=== PATIENT | female | born 1930 | race Caucasian/White ===

== ENCOUNTER 2017-06-24 07:21 | Inpatient (IN) | payer OTHER ==
[~2017-06-24] VITALS: Ht 144.8 cm; Wt 30.8 kg
[~2017-06-24 07:21] MED LIST: A/B OTIC15 ML; ASPIR 8181 MG PO; CAG500 PO; CLARITIN10 MG PO; DOC-Q-LACE PO; DYA PO; ECO325 PO; ELIQUIS5 MG PO; FER300 PO; FOL1 PO; FOS10 PO; HYDROXYCHLOROQ200 MG PO; HYDROXYZINE HYD25 MG PO; LEFLUNOMIDE PO; LIPI10 PO; PRI20 PO; SUDAFED CONGEST30 MG PO; SYN5 PO; VITD PO
[2017-06-24] MEDS ORDERED: GINKGO BILOBA60 M2 PO (08:03)
[2017-06-24] MEDS ORDERED: NATURAL IRON65 MG PO (08:03)
[2017-06-24] MEDS ORDERED: HYDROCORTISONE2.51 TP (08:04)
[2017-06-24] MEDS ORDERED: D-20001 TAB PO (08:04)
[2017-06-24] MEDS ORDERED: AMOXICILLI400 MG/5 M PO (08:05)
[2017-06-24] MEDS ORDERED: PATADAY2.5 ML OP (08:05)
[2017-06-24 08:28] LABS: BASOPHIL % 0.2 % (0-2); PLATELET COUNT 257 x10^3mcL (130-400)
[2017-06-24 08:51] LABS: ALKALINE PHOSPHATASE 137 U/L (46-116); ALT/SGPT 21 U/L (14-59); AST/SGOT 30 U/L (15-37); BILIRUBIN TOTAL 0.46 mg/dL (0.20-1.00); CALCIUM 8.7 mg/dL (8.5-10.1); CARBON DIOXIDE 15.5 mmol/L (21-32); CHLORIDE SERUM 111 mmol/L (98-107); GLUCOSE SERUM 67 mg/dL (74-106); SODIUM SERUM 148 mmol/L (136-145); TOTAL PROTEIN, SERUM 7.7 g/dL (6.4-8.2)
[2017-06-24 08:55] LABS: ALBUMIN 2.5 g/dL (3.4-5.0)
[2017-06-24 08:56] LABS: POTASSIUM SERUM 5.8 mmol/L (3.5-5.1)
[2017-06-24 09:13] LABS: RED CELL DISTRIBUTION WIDTH 17.1 % (11.5-14.5)
[2017-06-24 09:45] LABS: UA SPECIFIC GRAVITY 1.025 (1.005-1.035); microscopic required? YES; urine erythrocyte NEGATIVE (NEGATIVE)
[2017-06-24 10:35] LABS: T3 TOTAL 0.48 ng/mL
[2017-06-24 10:46] LABS: MAGNESIUM 2.7 mg/dL (1.8-2.4); PHOSPHOROUS 5.3 mg/dL (2.5-4.9)
[2017-06-24 10:47] VITALS: BP 147/78
[2017-06-24 10:54] LABS: FREE T4 0.9 ng/dL (0.76-1.46); FREE THYROXINE INDEX 1.7 ug/dL (1.4-4.5); T4(THYROXINE) 4.3 ug/dL (4.7-13.3)
[2017-06-24 11:48] VITALS: BP 147/78
[2017-06-24 14:40] VITALS: BP 108/58
[2017-06-24 17:11] VITALS: BP 118/62
[2017-06-24 18:41] LABS: CARBON DIOXIDE 18.7 mmol/L (21-32); CHLORIDE SERUM 115 mmol/L (98-107); CREATININE SERUM 2.5 mg/dL (0.6-1.0); GLUCOSE SERUM 85 mg/dL (74-106); MAGNESIUM 2.5 mg/dL (1.8-2.4); POTASSIUM SERUM 4.3 mmol/L (3.5-5.1); SODIUM SERUM 152 mmol/L (136-145)
[2017-06-24 20:57] VITALS: BP 112/49
[2017-06-25 06:15] LABS: BASOPHIL % 0.4 % (0-2); PLATELET COUNT 175 x10^3mcL (130-400)
[2017-06-25 06:18] LABS: CALCIUM 7.8 mg/dL (8.5-10.1); CARBON DIOXIDE 20.8 mmol/L (21-32); CHLORIDE SERUM 118 mmol/L (98-107); CREATININE SERUM 2.1 mg/dL (0.6-1.0); MAGNESIUM 2.3 mg/dL (1.8-2.4); PHOSPHOROUS 3.4 mg/dL (2.5-4.9); SODIUM SERUM 151 mmol/L (136-145)
[2017-06-25 06:25] LABS: GLUCOSE SERUM 59 mg/dL (74-106)
[2017-06-25 10:04] VITALS: BP 126/60
[2017-06-25 12:45] VITALS: BP 119/62
[2017-06-25 17:11] VITALS: BP 116/67
[2017-06-25 21:32] VITALS: BP 107/64
[2017-06-26 06:31] LABS: CALCIUM 7.2 mg/dL (8.5-10.1); CARBON DIOXIDE 22.6 mmol/L (21-32); CHLORIDE SERUM 106 mmol/L (98-107); CREATININE SERUM 1.4 mg/dL (0.6-1.0); GLUCOSE SERUM 217 mg/dL (74-106); MAGNESIUM 1.7 mg/dL (1.8-2.4); PHOSPHOROUS 1.6 mg/dL (2.5-4.9); POTASSIUM SERUM 3.3 mmol/L (3.5-5.1); SODIUM SERUM 135 mmol/L (136-145)
[2017-06-26 06:38] LABS: BASOPHIL % 0.1 % (0-2); PLATELET COUNT 145 x10^3mcL (130-400)
[2017-06-26 06:59] LABS: RED CELL DISTRIBUTION WIDTH 16.9 % (11.5-14.5)
[2017-06-26 10:02] VITALS: BP 108/50
[2017-06-26 17:40] VITALS: BP 93/54
[2017-06-26 21:58] VITALS: BP 116/60
[2017-06-27 06:22] VITALS: BP 112/66
[2017-06-27 08:49] VITALS: BP 114/55
[2017-06-27] MEDS ORDERED: NIT0.4 SL (11:28)
[2017-06-27] MEDS ORDERED: THERA TABS1 TAB PO (11:53)
[2017-06-27] MEDS ORDERED: LAC PO (12:48)
[2017-06-27] MEDS ORDERED: COL100 PO (12:49)
[2017-06-27] MEDS ORDERED: KEFLEX500 M1 PO (12:51)
[2017-06-27 13:33] VITALS: BP 114/55
== END 2017-06-27 16:00 | disposition hospice, home (50) | DRG 871 ==
LOC: ED 07:21 → MU 09:08 → DU 09:08 → MU 06-26 09:32
PROVIDERS: Emergency Medicine; ADMIT Family Medicine
DX: A41.9 Sepsis, unspecified organism (principal); E43 Unspecified severe protein-calorie malnutrition; N17.0 Acute kidney failure with tubular necrosis; K85.90 Acute pancreatitis without necrosis or infection, unspecified; N39.0 Urinary tract infection, site not specified; E87.0 Hyperosmolality and hypernatremia; R64 Cachexia; Z68.1 Body mass index [BMI] 19.9 or less, adult; I24.8 Other forms of acute ischemic heart disease; R65.20 Severe sepsis without septic shock; E86.0 Dehydration; E83.39 Other disorders of phosphorus metabolism; E87.5 Hyperkalemia; E78.1 Pure hyperglyceridemia; M62.50 Muscle wasting and atrophy, not elsewhere classified, unspecified site; E03.9 Hypothyroidism, unspecified; M81.0 Age-related osteoporosis without current pathological fracture; M19.90 Unspecified osteoarthritis, unspecified site; M06.9 Rheumatoid arthritis, unspecified; Z66 Do not resuscitate; Z51.5 Encounter for palliative care; Z86.718 Personal history of other venous thrombosis and embolism; Z96.641 Presence of right artificial hip joint; Z96.653 Presence of artificial knee joint, bilateral; Z99.3 Dependence on wheelchair
CPT/HCPCS: 83880; 84439; 92610; J0696; J1815; J3490; J7030; J7040; J7070; Q0092